=== PATIENT | male | born 1990 | race Caucasian/White ===

== ENCOUNTER 2016-10-26 06:47 | Emergency (ER) | payer OTHER ==
[~2016-10-26] VITALS: Ht 195.6 cm; Wt 119.0 kg
[~2016-10-26 06:47] MED LIST: PERC5TAB12 PO
[2016-10-26 07:00] VITALS: BP 150/90; PULSE 53; RESP 16; TEMP 98.1; O2SAT 99
[2016-10-26] MEDS ORDERED: CYCL1TAB29 PO (08:01)
--- NOTE | 2016-10-26 08:01 | PD ---
HPI Chief Complaint: Back/ Neck Pain or Injury Time Seen by Provider: 07:42 Travel History International Travel<30 days: No Contact w/Intl Traveler<30days: No Traveled to known affect area: No History of Present Illness HPI Patient is a 26-year-old male with a history of left Achilles tendon rupture status post repair proximal 6 months ago presents emergency Department with right-sided low back pain. Patient states the pain is been going on for approximately a week and a half has been waxing and waning. Denies any dysuria blood in the urine. Patient states hurts him when he twists about his axial spine. He's been taking ibuprofen as well as icing at home with some relief. After examining the patient he states that he thinks he just needs muscle relaxants for couple of days to help him get over this. Denies any injury. No saddle anesthesia and no sciatica symptoms no enuresis and no stool difficulty. PFSH Past Medical History Diminished Hearing: No Tetanus Vaccination: Unknown Social History Alcohol Use: Yes (occasionally) Tobacco Use: No Substance Use: No Allergies-Medications (Allergen,Severity, Reaction): Coded Allergies: No Known Allergies (Unverified , 10/26/16) Reported Meds & Prescriptions Reported Meds & Active Scripts Active Flexeril (Cyclobenzaprine HCl) 10 Mg Tab 10 Mg PO TID Review of Systems Except as stated in HPI: all other systems reviewed are Neg Physical Exam Narrative GENERAL: Well-nourished, well-developed patient. SKIN: Warm and dry. HEAD: Normocephalic. EYES: No scleral icterus. No injection or drainage. NECK: Supple, trachea midline. No JVD or lymphadenopathy. CARDIOVASCULAR: Regular rate and rhythm without murmurs, gallops, or rubs. RESPIRATORY: Breath sounds equal bilaterally. No accessory muscle use. GASTROINTESTINAL: Abdomen soft, non-tender, nondistended. MUSCULOSKELETAL: No cyanosis, or edema. There is no midline T or L-spine tenderness. There is tenderness over the right latissimus muscle. Patient also points out that his been having some pain in his left SI joint however this is nontender. Pelvis is stable. BACK: Nontender without obvious deformity. No CVA tenderness. Data Data Last Documented VS Vital Signs Date Time Temp Pulse Resp B/P Pulse Ox O2 Delivery O2 Flow Rate FiO2 10/26/16 07:00 98.1 53 16 150/90 99 [facility] Medical Decision Making Medical Screen Exam Complete: Yes Emergency Medical Condition: Yes Differential Diagnosis Low back strain, low back pain, fracture seems highly unlikely, sacroiliitis. Narrative Course Patient was roomed in the emergency department, he appears well in no apparent distress. Ambulates for me during exam and following exam. Signs symptoms consistent with a low back muscular strain. We will place on Flexeril and discussed since medic management. Otherwise she is stable for discharge at this time. He does have physical therapist for his tendon rupture and encouraged follow-up. Also discussed with his primary care physician and his orthopedic surgeon. Diagnosis Primary Impression: Low back strain Qualified Code: S39.012A - Low back strain, initial encounter Med/Other Pt SpecificInfo: Prescription(s) given Scripts Cyclobenzaprine (Flexeril)10 Mg Tab10 Mg PO TID #30 TAB Ref 0 Prov:Miguel Siegel MD 10/26/16 Disposition: 01 DISCHARGE HOME Condition: Stable Miguel Siegel MD Oct 26, 2016 08:01
== END 2016-10-26 08:08 | disposition home or self-care (01) ==
LOC: PHED 06:47 → PHEFT 08:08
DX: S39.012A Strain of muscle, fascia and tendon of lower back, initial encounter (principal); Z87.39 Personal history of other diseases of the musculoskeletal system and connective tissue; Z98.890 Other specified postprocedural states; X58.XXXA Exposure to other specified factors, initial encounter
CPT/HCPCS: 99283